=== PATIENT | female | born 1990 | race Caucasian/White ===

== ENCOUNTER 2017-03-19 17:39 | Emergency (ER) | payer OTHER ==
[2017-03-19 17:43] VITALS: BP 111/68; PULSE 79; TEMP 98.1; BMI 21.0
--- NOTE | 2017-03-19 20:58 | PDOC ---
History of Present Illness - History of Present Illness Initial Comments: 03/19/17 20:52 CHIEF COMPLAINT: HISTORY OF PRESENT ILLNESS: 26 yo A2 F with no significant PMH presents to ED with vaginal bleeding x 1 day. Patient reports that last night she had " some spotting" but today she has been having "a lot more bleeding with big clots , and my period isn't due for another two weeks." She reports feeling lightheaded this morning, some nausea today, but denies vomiting or diarrhea. Her LMP was 02/28. Her OB is Dr. Garcia. No recent travel or sick contacts. PAST MEDICAL HISTORY: Denies past medical history FAMILY HISTORY: Denies SOCIAL HISTORY: Denies tobacco, alcohol, illicit drug use. SURGICAL HISTORY: (2009) ALLERGIES: No known drug allergies REVIEW OF SYSTEMS General/Constitutional: Denies fever or chills. Denies weakness. HEENT: Denies change in vision. Denies ear pain or discharge. Denies sore throat. Cardiovascular: Denies chest pain or shortness of breath. Respiratory: Denies cough, wheezing, or hemoptysis. Gastrointestinal: Denies vomiting, diarrhea or constipation. Denies rectal bleeding. Genitourinary: Vaginal bleeding. Denies dysuria, frequency, or change in urination. Musculoskeletal: Denies joint or muscle swelling or pain. Denies neck or back pain. Skin: Denies rash or easy bruising. Neurologic: Lightheadedness. Denies loss of consciousness, or loss of sensation. PHYSICAL EXAM General Appearance: Well-appearing, appropriately dressed. No apparent distress. HEENT: EOMI, PERRLA, normal ENT inspection. No conjunctival pallor. No photophobia, scleral icterus. Respiratory/Chest: Lungs CTAB. Cardiovascular: RRR. S1, S2. Gastrointestinal/Abdominal: Normal bowel sounds. Abdomen soft, non-distended. No tenderness or rebound tenderness. No organomegaly, pulsatile mass, guarding , hernia, hepatomegaly, splenomegaly. Pelvic: External genitalia normal without lesions. Vaginal vault with copious bloody discharge. Cervix is long and closed. No cervical motion tenderness. Uterus is nontender and normal in size. Left adnexal tenderness. Musculoskeletal/Extremities: Normal inspection. FROM of all extremities, normal capillary refill. Pelvis Stable. No CVA tenderness. No tenderness to extremities, pedal edema, swelling, erythema or deformity. Integumentary: Appropriate color, dry, warm. No cyanosis, erythema, jaundice or rash Neurologic: site technician II-XII intact. Fully oriented, alert. Appropriate mood/affect. Motor strength 5/5. No appreciable EOM palsy, facial droop or sensory deficit. <Bisi Novak - Last Filed: 03/20/17 00:23> <Nelly Vaz - Last Filed: 03/20/17 00:38> - General Chief Complaint: Vaginal Bleeding Stated Complaint: VAGINAL BLEEDING Time Seen by Provider: 03/19/17 20:29 Past History - Psycho/Social/Smoking Cessation Hx Suicidal Ideation: No Smoking History: Never smoked Information on smoking cessation initiated: No Hx Alcohol Use: No Drug/Substance Use Hx: No Substance Use Type: None <Bisi Novak - Last Filed: 03/20/17 00:23> <Nelly Vaz - Last Filed: 03/20/17 00:38> - Past Medical History Allergies/Adverse Reactions: Allergies Allergy/AdvReac Type Severity Reaction Status Date / Time No Known Allergies Allergy Verified 01/13/16 13:21 Home Medications: Ambulatory Orders NK [No Known Home Medication] 03/20/17 *Physical Exam - Vital Signs Last Vital Signs Temp Pulse Resp BP Pulse Ox 98.1 F 79 18 111/68 95 03/19/17 17:41 03/19/17 17:41 03/19/17 17:41 03/19/17 17:41 03/19/17 17:41 <Bisi Novak - Last Filed: 03/20/17 00:23> - Vital Signs Last Vital Signs Temp Pulse Resp BP Pulse Ox 98.1 F 79 18 111/68 95 03/19/17 17:41 03/19/17 17:41 03/19/17 17:41 03/19/17 17:41 03/19/17 17:41 <Nelly Vaz - Last Filed: 03/20/17 00:38> ED Treatment Course - LABORATORY CBC & Chemistry Diagram: 03/19/17 21:30 03/19/17 21:30 - RADIOLOGY Radiology Studies Ordered: Category Date Time Status TRANSVAGINAL ULTRASOUND US [US] Stat Ultrasound 03/19/17 20:50 Ordered <Bisi Novak - Last Filed: 03/20/17 00:23> - LABORATORY CBC & Chemistry Diagram: 03/19/17 21:30 03/19/17 21:30 - ADDITIONAL ORDERS Additional order review: Laboratory Results 03/19/17 03/19/17 03/19/17 21:30 21:30 21:30 Sodium 139 Potassium 3.9 Chloride 104 Carbon Dioxide 30 Anion Gap 5 L BUN 7 D Creatinine 0.6 Creat Clearance w eGFR > 60 Random Glucose 70 L Calcium 8.7 Total Bilirubin 0.3 AST 29 ALT 23 Alkaline Phosphatase 48 D Total Protein 7.4 Albumin 4.1 Beta HCG, Quant < 1.0 Blood Type A POSITIVE Antibody Screen Negative 03/19/17 21:30 RBC 4.05 MCV 92.4 MCHC 32.6 RDW 13.0 MPV 10.3 Neutrophils % 54.2 D Lymphocytes % 33.8 D Monocytes % 7.7 Eosinophils % 3.3 D Basophils % 1.0 <Nelly Vaz - Last Filed: 03/20/17 00:38> Medical Decision Making - Medical Decision Making 03/19/17 20:58 26 yo A2 F with no significant PMH presents to ED with vaginal bleeding x 1 day. -CBC, CMP, T&S, beta hCG -TV US 03/19/17 22:32 Labs unremarkable. Awaiting ultrasound. 03/20/17 00:22 Findings: The uterus is anteverted and measures 12 x 5.5 x 4.5 cm. A subserosal fibroid is seen in the dorsal myometrium on the right measures up to 2.3 cm in diameter. The endometrium measures 1 cm in diameter at the upper limits of normal. The left ovary measures 3.1 x 3.2 0.2 cm contains follicles and demonstrates normal arterial flow on color Doppler images. The right ovary measures 2.7 x 3.5 x 1.9 cm and demonstrates normal arterial flow on color Doppler images. On endovaginal images the uterus is retroverted. The fibroid is again visualized. A cyst is seen in the left ovary appears collapsed likely an involuting luteal cyst.. No free fluid is seen. Impression: Fibroid uterus. Partially collapsed complex cyst in the left ovary likely an involuting luteal cyst. Normal appearance of the right ovary. Normal arterial flow seen bilaterally. Will discharge to home with close f/u with [facility]. Advised patient to take Motrin for pain and f/u with [facility] this week. Advised patient of signs and symptoms for return to ER; patient verbalized understanding and agrees to plan. <ScarletBisi - Last Filed: 03/20/17 00:23> *DC/Admit/Observation/Transfer - Discharge Dispostion Admit: No <Bisi Novak - Last Filed: 03/20/17 00:23> <Nelly Vaz - Last Filed: 03/20/17 00:38> Diagnosis at time of Disposition: Ruptured ovarian cyst - Discharge Dispostion Disposition: HOME Condition at time of disposition: Stable - Referrals Referrals: Nikki Willams [Non Staff, Medical] - - Patient Instructions Printed Discharge Instructions: DI for Ovarian Cyst Additional Instructions: As discussed, you have a ruptured ovarian cyst; this can be very uncomfortable but is not life threatning. Please take motrin for your pain. Follow up with Dr. Garcia this week for further evaluation of your ovarian cysts. If you experience any severe vaginal bleeding (more than one soaked pad an hour), fever , chills, nausea, vomiting, or any new or worsening symptoms, please return tot he ER.
[2017-03-19 21:39] LABS: EOSINOPHIL 3.3 % (0-4.5); MCH 30.2 pg (25.7-33.7); MCHC 32.6 g/dl (32.0-36.0); MEAN CELL VOLUME 92.4 fl (80-96); MEAN PLT VOLUME 10.3 fl (7.5-11.1); NEUTROPHILS 54.2 % (42.8-82.8); PLATELET COUNT 204 K/MM3 (134-434); WHITE BLOOD COUNT 8.7 K/mm3 (4.0-10.0)
[2017-03-19 22:10] LABS: ALBUMIN 4.1 g/dl (3.4-5.0); ALK PHOS 48 U/L (45-117); ANION GAP 5 (8-16); BILIRUBIN,TOTAL 0.3 mg/dL (0.2-1.0); CALCIUM 8.7 mg/dL (8.5-10.1); CO2 30 mmol/L (21-32); CREATININE 0.6 mg/dL (0.55-1.02); GLUCOSE,RANDOM 70 mg/dL (74-106); SGOT/AST 29 U/L (15-37); SGPT/ALT 23 U/L (12-78); TOT PROT 7.4 g/dl (6.4-8.2)
== END 2017-03-20 00:43 | disposition home or self-care (01) ==
LOC: JER 17:39
DX: D25.9 Leiomyoma of uterus, unspecified (principal); N83.12 Corpus luteum cyst of left ovary
CPT/HCPCS: 36415; 76830-TC; 80053; 84702; 85025; 86850; 86900; 86901; 99282-25

== ENCOUNTER 2018-03-06 10:31 | Emergency (ER) | payer OTHER ==
[2018-03-06 10:57] VITALS: BMI 20.6
--- NOTE | 2018-03-06 11:07 | PDOC ---
History of Present Illness - General Chief Complaint: Vaginal Bleeding Stated Complaint: ABD CRAMPING (7 WKS ) Time Seen by Provider: 03/06/18 11:05 History Source: Patient Exam Limitations: No Limitations Past History - Travel Traveled outside of the country in the last 30 days: No Close contact w/someone who was outside of country & ill: No - Past Medical History Allergies/Adverse Reactions: Allergies Allergy/AdvReac Type Severity Reaction Status Date / Time No Known Allergies Allergy Verified 03/06/18 10:51 Home Medications: Ambulatory Orders Omeprazole 20 mg PO DAILY 03/06/18 COPD: No - Suicide/Smoking/Psychosocial Hx Smoking History: Never smoked Have you smoked in the past 12 months: No Information on smoking cessation initiated: No Hx Alcohol Use: Yes (socially) Drug/Substance Use Hx: No Substance Use Type: None Review of Systems - Review of Systems Able to Perform ROS?: Yes Comments:: 03/06/18 11:06 CONSTITUTIONAL: Absent: fever, chills, diaphoresis, generalized weakness, malaise, loss of appetite HEENT: Absent: rhinorrhea, nasal congestion, throat pain, throat swelling, difficulty swallowing, mouth swelling, ear pain, eye pain, visual Changes CARDIOVASCULAR: Absent: chest pain, loss of consciousness, palpitations, irregular heart rate, peripheral edema RESPIRATORY: Absent: cough, shortness of breath, dyspnea with exertion, orthopnea, wheezing, stridor, hemoptysis GASTROINTESTINAL: Absent: abdominal pain, abdominal distension, nausea, vomiting, diarrhea, constipation, melena, hematochezia GENITOURINARY: Absent: dysuria, frequency, urgency, hesitancy, hematuria, flank pain, genital pain MUSCULOSKELETAL: Absent: myalgia, arthralgia, joint swelling SKIN: Absent: rash, itching, pallor HEMATOLOGIC/IMMUNOLOGIC: Absent: easy bleeding, easy bruising, lymphadenopathy, frequent infections ENDOCRINE: Absent: unexplained weight gain, unexplained weight loss, heat intolerance, cold intolerance NEUROLOGIC: Absent: headache, focal weakness or paresthesias, dizziness, unsteady gait, seizure, mental status changes, bladder or bowel incontinence PSYCHIATRIC: Absent: anxiety, depression, suicidal or homicidal ideation, hallucinations. Is the patient limited [place] proficient: No *Physical Exam - Vital Signs Last Vital Signs Temp Pulse Resp BP Pulse Ox 70 16 123/65 100 03/06/18 10:51 03/06/18 10:51 03/06/18 10:51 03/06/18 10:51 - Physical Exam Comments: 03/06/18 11:06 GENERAL: Well developed, well nourished. Awake and alert. No acute distress. HEENT: Normocephalic, atraumatic. PERRLA, EOMI. No conjunctival pallor. Sclera are non- icteric. Moist mucous membranes. Oropharynx is clear. NECK: Supple. Full ROM. No JVD. Carotid pulses 2+ and symmetric, without bruits. No thyromegaly. No lymphadenopathy. CARDIOVASCULAR: Regular rate and rhythm. No murmurs, rubs, or gallops. Distal pulses are 2+ and symmetric. PULMONARY: No evidence of respiratory distress. Lungs clear to auscultation bilaterally. No wheezing, rales or rhonchi. ABDOMINAL: Soft. Non-tender. Non-distended. No rebound or guarding. No organomegaly. Normoactive bowel sounds. MUSCULOSKELETAL Normal range of motion at all joints. No bony deformities or tenderness. No CVA tenderness. EXTREMITIES: No cyanosis. No clubbing. No edema. No calf tenderness. SKIN: Warm and dry. Normal capillary refill. No rashes. No jaundice. NEUROLOGICAL: Alert, awake, appropriate. Cranial nerves 2-12 intact. No deficits to light touch and temperature in face, upper extremities and lower extremities. No motor deficits in the in face, upper extremities and lower extremities. Normoreflexic in the upper and lower extremities. Normal speech. Toes are down- going bilaterally. Gait is normal without ataxia. PSYCHIATRIC: Cooperative. Good eye contact. Appropriate mood and affect. ED Treatment Course - LABORATORY CBC & Chemistry Diagram: 03/06/18 11:30 *DC/Admit/Observation/Transfer Diagnosis at time of Disposition: Abdominal cramping - Discharge Dispostion Disposition: HOME Condition at time of disposition: Stable Admit: No - Referrals Referrals: Amie Melissa MD [Primary Care Provider] - Ursula Galan MD [Staff Physician] - - Patient Instructions Printed Discharge Instructions: DI for Abdominal Pain-Adult Additional Instructions: Your blood work for is 3.2. Your ultrasound did not show a . Please return in 2 days for repeat blood work Drink plenty of fluids and get plenty of rest Return to the ED if your pain gets worse, if you have fevers, increased bleeding or have any changes in your symptoms. - Post Discharge Activity Forms/Work/School Notes: Back to Work
[2018-03-06 11:42] LABS: URINE APPEARANCE CLEAR; URINE BILIRUBIN NEGATIVE (<2.0 mg/dL); URINE BLOOD 3+ (NEGATIVE); URINE COLOR LTYELLOW; URINE GLUCOSE (UA) NEGATIVE (NEGATIVE); URINE KETONE NEGATIVE (NEGATIVE); URINE LEUK ESTERASE NEGATIVE (NEGATIVE); URINE NITRITE NEGATIVE (NEGATIVE); URINE PROTEIN NEGATIVE (NEGATIVE); URINE UROBILINOGEN NEGATIVE mg/dL (0.2-1.0)
[2018-03-06 11:44] LABS: EPI CELLS RARE /HPF (FEW); URINE MUCUS RARE
[2018-03-06 11:46] LABS: BASO % 0.6 % (0-2.0); EOS % 1.1 % (0-4.5); HEMOGLOBIN 12.5 GM/dL (10.7-15.3); LYMPH % 34.8 % (8-40); MCH 31.5 pg (25.7-33.7); MCHC 33.8 g/dl (32.0-36.0); MEAN CELL VOLUME 93.4 fl (80-96); MEAN PLT VOLUME 9.8 fl (7.5-11.1); MONO % 5.6 % (3.8-10.2); NEUT % 57.9 % (42.8-82.8); PLATELET COUNT 203 K/MM3 (134-434); RBC 3.96 M/mm3 (3.60-5.2); RDW 13.1 % (11.6-15.6); WHITE BLOOD COUNT 6.8 K/mm3 (4.0-10.0)
[2018-03-06 14:12] VITALS: BP 102/65; PULSE 68; TEMP 98.3
--- NOTE | 2018-03-08 07:53 | PDOC ---
Patient Follow-up (Call Back) - Post ED Follow - Up Condition at time of discharge: Stable Disposition at time of original discharge: HOME Reason for Call Back: Abnwl. Microbiology Signs/Symptoms Improved: No - Disposition Additional Instructions/Notes: Patient still with abdominal cramping. Will send RX for macrobid.
== END 2018-03-06 14:15 | disposition home or self-care (01) ==
LOC: JER 10:31
DX: O26.891 Other specified pregnancy related conditions, first trimester (principal); Z3A.01 Less than 8 weeks gestation of pregnancy; R10.2 Pelvic and perineal pain
CPT/HCPCS: 36415; 76817-TC; 81003; 81015; 84702; 85025; 86850; 86900; 86901; 87086; 87186; 99283-25

== ENCOUNTER 2019-04-04 14:54 | Inpatient (IN) | payer OTHER | END 2019-04-04 22:55 | disposition home or self-care (01) | LOC: JER 14:54 → JERBED 20:40 → J8W 22:07 ==